=== PATIENT | female | born 2000 | race Hispanic/Latino ===

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

== ENCOUNTER 2019-09-05 21:44 | Emergency (ER) | payer OTHER ==
[~2019-09-05] VITALS: Ht 160 cm; Wt 530.7 kg
--- OUTSIDE RECORDS SUMMARY | 2019-09-05 21:46 | XMS ---
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 - Has Care Guidelines - [facility] - 2 Visits in 30 Days CARE PROVIDERS Yara Alcaraz Community Health Worker 12/06/2018-Current PHONE: [phone] MEGAN MATHIS Family Medicine Current PHONE: Unknown GEOFFREY RITTER Family [facility] Current PHONE: Unknown [facility] Primary Care [facility] PHONE: Unknown Guidelines Source: [employer] Guidelines Date: 11/01/2018 Care Recommendation: Nan was receiving services from [facility] in [place], [place] [phone] for a brief period in January 2018, she is encouraged to return to services.\T\nbsp; Care History Medical/Surgical 11/23/2018 [facility] - CHW UNABLE TO CONTACT PATIENT- DUE TO NO PCP. NO CONTACT NUMBER LISTED. - CHW SENT PATIENT A NO PCP LETTER. E.D. VISIT COUNT (12 MO.) 36 [facility] [address] [facility]. TOTAL 39 NOTE: Visits indicate total known visits. ED/UCC VISIT TRACKING (12 MO.) 09/05/2019 21:44 ELIAS [place] TYPE: Emergency COMPLAINT: - MEDICAL CLEARANCE 08/25/2019 06:31 [facility] [place] TYPE: Emergency DIAGNOSES: - POSSIBLE PANIC ATTACK - Anxiety disorder, unspecified 08/16/2019 20:42 [facility] [employer] [place] TYPE: Emergency DIAGNOSES: - Lower abdominal pain, unspecified - stomach pain 08/09/2019 17:44 [facility] [place] TYPE: Emergency DIAGNOSES: - Other psychoactive substance use, unspecified, uncomplicated - MENTAL HEALTH 08/07/2019 21:12 [facility] [place] TYPE: Emergency DIAGNOSES: - Trichomoniasis, unspecified Trichomon - ABD PAIN, VAGINAL DISCHARGE 07/26/2019 13:47 [facility] [place] TYPE: Emergency DIAGNOSES: - abdominal pain - Acute cystitis without hematuria 05/12/2019 21:35 [facility] [place] TYPE: Emergency DIAGNOSES: - Other stimulant abuse, uncomplicated - HEADACHE 05/08/2019 16:21 [facility] [place] TYPE: Emergency DIAGNOSES: - CONGESTED 04/21/2019 17:42 [facility] [place] TYPE: Emergency DIAGNOSES: - Homelessness - Dysthymic disorder - Other stimulant abuse, uncomplicated - CHEST PAIN - Contact w and exposure to infect w a sexl mode of transmiss 04/06/2019 04:45 [facility] [place] TYPE: Emergency DIAGNOSES: - Abnormal weight loss - POSSIBLE HIGH BLOOD SUGARS NOT FEELING WELL 03/27/2019 20:56 Yohana [place] TYPE: Emergency COMPLAINT: - CRISIS 03/16/2019 19:43 [facility] [place] TYPE: Emergency DIAGNOSES: - Tension-type headache, unspecified, not intractable - BODY PAIN 03/16/2019 07:12 [facility] [place] TYPE: Emergency DIAGNOSES: - tingling arms - Homelessness - Other stimulant abuse, uncomplicated 03/15/2019 11:43 [employer] [place] [employer] [facility] [place] TYPE: Emergency DIAGNOSES: - Other stimulant abuse, uncomplicated - TOOTH ABSCESS 02/17/2019 00:39 [employer] [place] [employer] [facility] [place] TYPE: Emergency DIAGNOSES: - NOT FEELING WELL HEADACHE - Epigastric pain 01/31/2019 13:20 [employer] [place] [employer] [place] TYPE: Emergency DIAGNOSES: - Acute gastritis without bleeding - ABD PAIN 01/31/2019 10:03 [employer] [place] TYPE: Emergency DIAGNOSES: - drug detox 01/22/2019 02:20 [facility] [employer] [place] TYPE: Emergency DIAGNOSES: - Toothache - Other chronic pain - Disorder of teeth and supporting structures, unspecified 01/21/2019 14:10 [facility] [place] TYPE: Emergency DIAGNOSES: - POSS MISCARRIAGE - Other stimulant abuse, uncomplicated 01/19/2019 06:26 [facility] [place] TYPE: Emergency DIAGNOSES: - Other stimulant abuse, uncomplicated - NOT FEELING WELL Plus 19 More Visits INPATIENT VISIT TRACKING (12 MO.) No inpatient visits to display in this time frame [id number]
== END 2019-09-06 00:07 | disposition home or self-care (01) ==
LOC: ED 21:44
DX: R45.851 Suicidal ideations (principal); E11.9 Type 2 diabetes mellitus without complications; F17.200 Nicotine dependence, unspecified, uncomplicated
CPT/HCPCS: 81001; 85025; 99283

== ENCOUNTER 2019-12-11 17:17 | Emergency (ER) | payer OTHER ==
[~2019-12-11] VITALS: Ht 160 cm; Wt 530.7 kg
--- OUTSIDE RECORDS SUMMARY | 2019-12-11 17:20 | XMS ---
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 No recent Security Events currently on file CRITERIA MET - Group Notification - 6 ED Visits in 6 Months - [facility] - Has Care Guidelines - [facility] - 2 Visits in 30 Days CARE PROVIDERS EDWIN MADERA Physician Drum Barker Operator Current PHONE: [phone] SHWETA VALDERRAMA Physician Drum Barker Operator Current PHONE: [phone] KECIA ANNE Supervisor Salvage/Field Nurse Current PHONE: [phone] KECIA ANNE Supervisor Salvage/Field Nurse Current PHONE: [phone] KECIA ANNE Supervisor Salvage/Field Nurse Current PHONE: [phone] JEN DIAZ Windows Server Engineer: Clinical Derek QUISPE PHONE: [phone] Yara Alcaraz Community Health Worker 12/06/2018-Current PHONE: [phone] DELFINA [facility] [place] Current PHONE: Unknown Guidelines Source: [facility] Guidelines Date: 11/01/2018 Care Recommendation: Nan was receiving services from [facility] in [place] [phone] for a brief period in January 2018, she is encouraged to return to services.\T\nbsp; Care History Medical/Surgical 11/23/2018 [facility] - CHW UNABLE TO CONTACT PATIENT- DUE TO NO PCP. NO CONTACT NUMBER LISTED. - CHW SENT PATIENT A NO PCP LETTER. Behavioral 11/20/2019 [facility] Please contact [facility] if this client presents in the ED. [facility] [phone] E.D. VISIT COUNT (12 MO.) 33 [facility] 1 Yohana Rolle 2 [facility] TOTAL 36 NOTE: Visits indicate total known visits. ED/C VISIT TRACKING (12 MO.) 12/11/2019 17:18 ELIAS [place] TYPE: Emergency COMPLAINT: - NAUSEA 12/08/2019 06:35 [employer] [place] TYPE: Emergency DIAGNOSES: - NAUSEA - Nausea - Tension-type headache, unspecified, not intractable 12/04/2019 18:06 [employer] [place] TYPE: Emergency DIAGNOSES: - abdominal pain, 12/01/2019 22:08 [facility] [place] TYPE: Emergency DIAGNOSES: - Nausea - ABD PAIN - Other stimulant abuse, uncomplicated 11/30/2019 14:29 [facility] [place] TYPE: Emergency DIAGNOSES: - ABDOMINAL PAIN 11/23/2019 02:19 [facility] [employer] [place] TYPE: Emergency DIAGNOSES: - Fever, unspecified - FEVER 11/22/2019 06:42 [facility] [employer] [place] TYPE: Emergency DIAGNOSES: - Unspecified sexually transmitted disease - Pelvic and perineal pain - FLU LIKE SYMPTOMS 11/18/2019 17:22 [facility] [employer] [place] TYPE: Emergency DIAGNOSES: - COUGH 11/06/2019 17:12 [employer] [place] TYPE: Emergency DIAGNOSES: - Acute pharyngitis, unspecified - FEVER 11/06/2019 14:27 [employer] [place] [employer] [place] TYPE: Emergency DIAGNOSES: - General - Acute pharyngitis, unspecified 10/28/2019 00:52 [employer] [place] [employer] [place] TYPE: Emergency DIAGNOSES: - Other stimulant abuse, uncomplicated - MENTAL HEALTH 09/05/2019 21:44 ELIAS [place] TYPE: Emergency COMPLAINT: - MEDICAL CLEARANCE DIAGNOSES: - Suicidal ideations - Type 2 diabetes mellitus without complications - Nicotine dependence, unspecified, uncomplicated 08/25/2019 06:31 [employer] [facility] [place] TYPE: Emergency DIAGNOSES: - POSSIBLE PANIC ATTACK - Anxiety disorder, unspecified 08/16/2019 20:42 [employer] [place] TYPE: Emergency DIAGNOSES: - Lower abdominal pain, unspecified - stomach pain 08/09/2019 17:44 [email or web address] [place] TYPE: Emergency DIAGNOSES: - Other psychoactive substance use, unspecified, uncomplicated - MENTAL HEALTH 08/07/2019 21:12 [facility] [employer] [place] TYPE: Emergency DIAGNOSES: - Trichomoniasis, unspecified - ABD PAIN, VAGINAL DISCHARGE 07/26/2019 13:47 [email or web address] [place] TYPE: Emergency DIAGNOSES: - abdominal pain - Acute cystitis without hematuria 05/12/2019 21:35 [facility] [place] TYPE: Emergency DIAGNOSES: - Other stimulant abuse, uncomplicated - HEADACHE 05/08/2019 16:21 [facility] [place] TYPE: Emergency DIAGNOSES: - CONGESTED 04/21/2019 17:42 [facility] [place] TYPE: Emergency DIAGNOSES: - Homelessness - Dysthymic disorder - Other stimulant abuse, uncomplicated - CHEST PAIN - Contact with and (suspected) exposure to infections with a pr Plus 18 More Visits INPATIENT VISIT TRACKING (12 MO.) No inpatient visits to display in this time frame [id number]
== END 2019-12-11 19:49 | disposition home or self-care (01) ==
LOC: ED 17:17
DX: F15.129 Other stimulant abuse with intoxication, unspecified (principal); E11.9 Type 2 diabetes mellitus without complications; F17.200 Nicotine dependence, unspecified, uncomplicated
CPT/HCPCS: 99283

== ENCOUNTER 2022-05-21 19:44 | Emergency (ER) | payer OTHER ==
[~2022-05-21] VITALS: Ht 160 cm; Wt 90.7 kg
--- OUTSIDE RECORDS SUMMARY | 2022-05-21 19:48 | XMS ---
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 - Patient with suicidal and/or homicidal ideations eloped. - Patient eloped with IV in place. Details: PATIENT LWBS CRITERIA MET - Group Notification - 6 ED Visits in 6 Months CARE PROVIDERS KECIA ANNE Metal Bonding Press Operator/Aboriginal Liaison Officer Current PHONE: [phone] BRANDEE MATUTE Community Health Worker 12/06/2018-Current PHONE: [phone] Care Guidelines exist for the following facilities: [facility] ( 05/05/2020 ) Care History Behavioral 11/20/2019 [facility] Please contact [facility] if this client presents in the ED. [facility] [phone] Medical/Surgical 11/23/2018 [facility] - CHW UNABLE TO CONTACT PATIENT- DUE TO NO PCP. NO CONTACT NUMBER LISTED. - CHW SENT PATIENT A NO PCP LETTER. E.D. VISIT COUNT (12 MO.) 15 [facility] 2 [facility] TOTAL 17 NOTE: Visits indicate total known visits. ED/C VISIT TRACKING (12 MO.) 05/21/2022 19:44 [facility] [place] [facility] COMPLAINT: - BEHAVIORAL PROBLEM 03/01/2022 22:21 [employer] [place] TYPE: Emergency COMPLAINT: - ALT MENTAL STATUS DIAGNOSES: - ALT MENTAL STATUS 03/01/2022 19:27 ELIAS [place] TYPE: Emergency COMPLAINT: - WOUND CHECK 01/14/2022 09:45 [facility] [place] TYPE: Emergency DIAGNOSES: - Other stimulant use, unspecified with intoxication, unspecified - OD 01/11/2022 22:07 [employer] [place] [employer] [place] TYPE: Emergency DIAGNOSES: - Contusion of left front wall of thorax, initial encounter - [facility] 12/28/2021 00:10 [facility] [employer] [place] TYPE: Emergency DIAGNOSES: - Other stimulant abuse, uncomplicated - DRUG USE 11/04/2021 14:18 [facility] [employer] [place] TYPE: Emergency DIAGNOSES: - weakness - Other stimulant abuse, uncomplicated 11/03/2021 19:44 [facility] [place] TYPE: Emergency DIAGNOSES: - Other stimulant abuse, uncomplicated - ABD PAIN 11/03/2021 05:30 [facility] [employer] [place] TYPE: Emergency DIAGNOSES: - Other stimulant abuse, uncomplicated - shortness of breath back pain 11/02/2021 23:08 [facility] [place] [facility]: Emergency DIAGNOSES: - VOMITING - Other stimulant abuse, uncomplicated 10/22/2021 03:29 [employer] [place] TYPE: Emergency DIAGNOSES: - Other stimulant abuse, uncomplicated - chest discomfort - Muscle spasm of back 10/05/2021 16:20 [employer] [place] TYPE: Emergency DIAGNOSES: - Other stimulant abuse, uncomplicated - ANXIETY 10/02/2021 20:47 [email or web address] [place] TYPE: Emergency DIAGNOSES: - PANIC ATTACK - Other stimulant abuse, uncomplicated 10/02/2021 14:25 [facility] [place] TYPE: Emergency DIAGNOSES: - TROUBLE BREATHING - Anxiety disorder, unspecified - Other stimulant abuse, uncomplicated 09/28/2021 08:07 [employer] [facility] [place] [facility]: Emergency DIAGNOSES: - ANXIETY - Anxiety disorder, unspecified - Other stimulant abuse, uncomplicated 09/28/2021 04:55 [employer] [place] TYPE: Emergency DIAGNOSES: - od - Other stimulant abuse, uncomplicated 08/06/2021 12:36 [employer] [place] TYPE: Emergency DIAGNOSES: - Schizoaffective disorder, unspecified - MEDICAL CLEARANCE - Encounter for other general examination INPATIENT VISIT TRACKING (12 MO.) No inpatient visits to display in this time frame [id number]
[2022-05-22] MEDS ORDERED: NAPROSYN500 MG PO (21:48)
== END 2022-05-21 22:00 | disposition left against medical advice (07) ==
LOC: ED 19:44
DX: T50.905A Adverse effect of unspecified drugs, medicaments and biological substances, initial encounter (principal); E11.9 Type 2 diabetes mellitus without complications; F17.200 Nicotine dependence, unspecified, uncomplicated; Z53.21 Procedure and treatment not carried out due to patient leaving prior to being seen by health care provider
CPT/HCPCS: 36415; 74018; 80053; 81001; 84703; 85025; 99284-25

== ENCOUNTER 2022-05-22 20:40 | Emergency (ER) | payer OTHER ==
[~2022-05-22] VITALS: Ht 160 cm; Wt 90.7 kg
--- OUTSIDE RECORDS SUMMARY | 2022-05-22 20:48 | XMS ---
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 - Patient with suicidal and/or homicidal ideations eloped. - Patient eloped with IV in place. Details: PATIENT LWBS CRITERIA MET - 6 ED Visits in 6 Months - Group Notification - [facility] - 2 Visits in 30 Days CARE PROVIDERS KECIA ANNE Cutter Wet Machine/Soft Drink Powder Mixer Current PHONE: [phone] BRANDEE MATUTE Community Health Worker 12/06/2018-Current PHONE: [phone] Care Guidelines exist for the following facilities: [facility] ( 05/05/2020 ) Care History Behavioral 11/20/2019 [facility] Please contact [facility] if this client presents in the ED. [facility] [phone] Medical/Surgical 11/23/2018 [facility] - CHW UNABLE TO CONTACT PATIENT- DUE TO NO PCP. NO CONTACT NUMBER LISTED. - CHW SENT PATIENT A NO PCP LETTER. E.D. VISIT COUNT (12 MO.) [address] [place] [address] 3 [facility] TOTAL 18 NOTE: Visits indicate total known visits. ED/C VISIT TRACKING (12 MO.) 05/22/2022 20:[facility] [place] [facility] COMPLAINT: - CRAMPING 05/21/2022 19:44 ELIAS [place] TYPE: Emergency COMPLAINT: - BEHAVIORAL PROBLEM 03/01/2022 22:21 [facility] TYPE: Emergency COMPLAINT: - ALT MENTAL STATUS DIAGNOSES: - ALT MENTAL STATUS 03/01/2022 19:27 ELIAS [place] TYPE: Emergency COMPLAINT: - WOUND CHECK 01/14/2022 09:45 [employer] [place] TYPE: Emergency DIAGNOSES: - Other stimulant use, unspecified with intoxication, unspecified - OD 01/11/2022 22:07 [facility] [place] TYPE: Emergency DIAGNOSES: - Contusion of left front wall of thorax, initial encounter - [facility] 12/28/2021 00:10 [facility] [place] TYPE: Emergency DIAGNOSES: - Other stimulant abuse, uncomplicated - DRUG USE 11/04/2021 14:18 [facility] [place] TYPE: Emergency DIAGNOSES: - weakness - Other stimulant abuse, uncomplicated 11/03/2021 19:44 [facility] [place] TYPE: Emergency DIAGNOSES: - Other stimulant abuse, uncomplicated - ABD PAIN 11/03/2021 05:30 [employer] [place] TYPE: Emergency DIAGNOSES: - Other stimulant abuse, uncomplicated - shortness of breath back pain 11/02/2021 23:08 [employer] [place] TYPE: Emergency DIAGNOSES: - VOMITING - Other stimulant abuse, uncomplicated 10/22/2021 03:29 [employer] [place] TYPE: Emergency DIAGNOSES: - Other stimulant abuse, uncomplicated - chest discomfort - Muscle spasm of back 10/05/2021 16:20 [employer] [place] TYPE: Emergency DIAGNOSES: - Other stimulant abuse, uncomplicated - ANXIETY 10/02/2021 20:47 [employer] [place] TYPE: Emergency DIAGNOSES: - PANIC ATTACK - Other stimulant abuse, uncomplicated 10/02/2021 14:25 [employer] [place] TYPE: Emergency DIAGNOSES: - TROUBLE BREATHING - Anxiety disorder, unspecified - Other stimulant abuse, uncomplicated 09/28/2021 08:07 [employer] [place] TYPE: Emergency DIAGNOSES: - ANXIETY - Anxiety disorder, unspecified - Other stimulant abuse, uncomplicated 09/28/2021 04:55 [employer] [place] TYPE: Emergency DIAGNOSES: - od - Other stimulant abuse, uncomplicated 08/06/2021 12:36 [facility] [place] TYPE: Emergency DIAGNOSES: - Schizoaffective disorder, unspecified - MEDICAL CLEARANCE - Encounter for other general examination INPATIENT VISIT TRACKING (12 MO.) No inpatient visits to display in this time frame [id number]
[2022-05-22] MEDS ORDERED: NAPROSYN500 MG PO (21:48)
== END 2022-05-22 22:24 | disposition home or self-care (01) ==
LOC: ED 20:40
DX: S39.012A Strain of muscle, fascia and tendon of lower back, initial encounter (principal); E11.9 Type 2 diabetes mellitus without complications; F17.200 Nicotine dependence, unspecified, uncomplicated; X58.XXXA Exposure to other specified factors, initial encounter
CPT/HCPCS: 81001; 99283

== ENCOUNTER 2024-06-09 12:56 | Emergency (ER) | payer OTHER ==
[~2024-06-09] VITALS: Ht 172.7 cm; Wt 83.5 kg
[~2024-06-09 12:56] MED LIST: CEPHALEXIN500 M1 PO; NAPROSYN500 MG PO; TRAZODONE HCL100 MG PO
[2024-06-09] MEDS ORDERED: LATUDA20 MG PO (13:02)
[2024-06-09 13:24] LABS: BASOPHILS 0.3 % (0-2); EOSINOPHILS 1.5 % (0-6); HEMATOCRIT 37.4 % (35.0-50.0); LYMPHOCYTES 27.2 % (24-44); MCH 30.9 (27-36); MCHC 34.9 g/dl (30-36); MCV 88.5 fl (81-99); MONOCYTES 7.5 % (0-12); NEUTROPHILS 63.5 % (39-80); PLATELET COUNT 256 K/uL (140-440); RBC 4.22 M/ul (4.3-5.7); RDW 13.6 (10.5-15.0)
[2024-06-09 13:47] LABS: ALBUMIN 3.3 g/dL (3.4-5.0); ALBUMIN/GLOBULIN RATIO 0.92 (1.1-2.4); ANION GAP 11.7 (7-21); BILIRUBIN, TOTAL 0.3 ng/dL (0.2-1.0); BUN/CREATININE RATIO 16.98 (6.0-28.6); CALCIUM 8.8 mg/dL (8.5-10.1); CREATININE, SERUM 0.53 mg/dL (0.55-1.02); MAGNESIUM 1.7 mg/dL (1.8-2.4); POTASSIUM 3.7 mmol/L (3.5-5.1); PROTEIN, TOTAL 6.9 g/dL (6.4-8.2)
[2024-06-09 14:05] VITALS: BP 114/98
--- NOTE | 2024-06-09 21:56 | EKG ---
[facility] [address] [facility] [place] [address] Signed Normal sinus rhythm Normal ECG No previous ECGs available Confirmed by Sheng Clay MD () on 06/09/2024 9:56:46 PM Electronically Signed By: SHENG CLAY MD 06/09/24 2156 PATIENT NAME: ZOYA RIOS Electrocardiogram DATE OF : [birth year] PHYSICIAN: SHENG CLAY MD REPORT #: [id number] REPORT IS CONFIDENTIAL AND NOT TO BE RELEASED WITHOUT AUTHORIZATION
== END 2024-06-09 14:05 | disposition home or self-care (01) ==
LOC: ED 12:56
PROVIDERS: Emergency Medicine
DX: R53.1 Weakness (principal); E11.9 Type 2 diabetes mellitus without complications; F20.9 Schizophrenia, unspecified; F17.200 Nicotine dependence, unspecified, uncomplicated; Z79.899 Other long term (current) drug therapy; Z59.00 Homelessness unspecified
CPT/HCPCS: 36415; 80053; 83735; 83880; 84484; 85025; 93005; 93010; 99285